=== PATIENT | male | born 1970 | race American Indian/Alaskan Native ===

== ENCOUNTER 2020-11-27 16:24 | Emergency (ER) | payer MEDICARE ==
[2020-11-27 16:50] VITALS: BP 160/104
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
== END 2020-11-27 17:15 | disposition home or self-care (01) ==
LOC: ED 16:24
DX: S16.1XXA Strain of muscle, fascia and tendon at neck level, initial encounter (principal); V87.7XXA Person injured in collision between other specified motor vehicles (traffic), initial encounter; Y93.89 Activity, other specified; Y92.89 Other specified places as the place of occurrence of the external cause; Y99.8 Other external cause status
CPT/HCPCS: 99281

== ENCOUNTER 2021-01-13 16:50 | Emergency (ER) | payer MEDICARE ==
[2021-01-13 16:56] VITALS: BP 156/97
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
== END 2021-01-13 19:07 | disposition home or self-care (01) ==
LOC: ED 16:50
DX: M54.12 Radiculopathy, cervical region (principal)
CPT/HCPCS: 99282